=== PATIENT | female | born 2000 | race Two or more races ===

== ENCOUNTER → 2024-08-22 | Outpatient (CLI) | payer MEDICAID, SELFPAY ==
--- NOTE | 2024-08-22 14:55 | XR_ITS ---
Examination: Breast ultrasound complete, bilateral Date and time of exam: August 22, 2024 1508 hours INDICATIONS: Nipple discharge 5 years Technique: Real-time grayscale ultrasonographic imaging bilateral breasts, including all 4 quadrants as well as nipple retroareolar and axillary regions. Findings: Sonographic images right and left breast demonstrated no cystic or solid mass IMPRESSION: BI-RADS Category 1: Negative study
== END | disposition home or self-care (01) ==
PROVIDERS: PCP Nurse Practitioner Family; Referring Provider Nurse Practitioner Family; Visit Provider Nurse Practitioner Family
DX: N64.59 Other signs and symptoms in breast (principal)
CPT/HCPCS: 76641

== ENCOUNTER → 2024-10-28 | Outpatient (CLI) | payer MEDICAID, SELFPAY ==
--- NOTE | 2024-10-28 16:00 | XR_ITS ---
Examination: MRI of brain without intravenous contrast. MRI brain with intravenous contrast. Date and time of exam:October 28, 2024 1758 hours Comparison May 04, 2020 INDICATIONS: Elevated prolactin levels breasts making fluid 5 years Technique: Multiple axial and sagittal images of the brain to been obtained. Siemens high-resolution 1.52 Kamla short bore scanner utilized. Sagittal sections, T1 weighted images, TR 500, TE 14, are performed. Axial sections proton-density and T2-weighted images have been obtained. Inversion recovery axial images, TR 9260, TE 111, TR 2500. Diffusion weighted images, axial sections, TR 4800, TE 128, B value 1000. Axial sections, ADC map, TR 4800, TE 128. Axial and coronal images were also obtained post 20 cc gadolinium administered intravenously. Findings:: Enlargement of the sella turcica is not present. The optic chiasm and infundibular stalk are not remarkable. There is no localized enlargement of the medulla or danny. Fourth ventricle and cerebellar tonsils appear normal in position. No subacute area of hemorrhage density is seen. Fourth ventricle is midline. Mass in the cerebellopontine angle region is not evident. 7th and 8th nerve complexes exhibit symmetry Globes are symmetrical Orbital musculature including medial lateral rectus muscles do not exhibit abnormality Increased white matter signal is not seen Effacement of the cortical sulcal markings is not identified. Mass effect upon the ventricular system is not identified. Diffusion-weighted images demonstrate no focus of restricted diffusion Contrast images suspicious for 3 mm pituitary microadenoma, coronal postcontrast image 8 of 13 Impression: Suspicious for 3 mm pituitary microadenoma, recommend 3-6 month follow-up brain MRI pre and postcontrast
[2024-10-28 16:44] LABS: HCG Qualitative,Urine Negative
== END | disposition home or self-care (01) ==
PROVIDERS: PCP Family Medicine; Referring Provider Nurse Practitioner Family; Visit Provider Nurse Practitioner Family
DX: E22.1 Hyperprolactinemia (principal); Z32.00 Encounter for pregnancy test, result unknown
CPT/HCPCS: 70553; 81025; A9579

== ENCOUNTER → 2025-09-08 | Outpatient (CLI) | payer MEDICAID, SELFPAY ==
[2025-09-05 09:41] LABS: HCG Qualitative,Urine Positive
== END | disposition home or self-care (01) ==
LOC: SMRI 08:09
PROVIDERS: PCP Internal Medicine; Referring Provider Nurse Practitioner Family; Visit Provider Nurse Practitioner Family
DX: Z32.00 Encounter for pregnancy test, result unknown (principal); Z53.8 Procedure and treatment not carried out for other reasons
CPT/HCPCS: 81025